=== PATIENT | female | born 1980 | race Caucasian/White ===

== ENCOUNTER 2021-08-25 09:45 | Emergency (ER) | payer MEDICAID, SELFPAY ==
[2021-08-25 09:54] VITALS: BP 147/76; PULSE 73; O2SAT 100
--- NOTE | 2021-08-25 11:30 | PC.NURSE ---
Addendum entered by Joao Ocampo 08/25/21 11:32: pt ripped her bracelet off and filed a complaint prior to talking with me, i was unaware of this when I had called her Original Note: attempted to triage the pt, called her name, she did not come to triage, asked her if she wanted to be cared for and she said she did not, I was informed by security that she ripped her bracelet off and filed a complaint,
== END 2021-08-25 12:26 | disposition left against medical advice (07) ==
PROVIDERS: Emergency Provider Emergency Medicine
DX: R11.2 Nausea with vomiting, unspecified (principal)